=== PATIENT | female | born 1970 | race Caucasian/White ===

== ENCOUNTER 2018-03-29 21:49 | Emergency (ER) | payer OTHER ==
[2018-03-29 21:55] VITALS: BP 134/90; PULSE 150; RESP 20; TEMP 98.2; O2SAT 98
[2018-03-29] MEDS ORDERED: ALPR.5 PO (22:03)
[2018-03-29] MEDS ORDERED: CELE40TA PO (22:03)
--- NOTE | 2018-03-29 22:08 | PD ---
HPI Chief Complaint: Psychiatric Symptoms Time Seen by Provider: 21:51 Travel History International Travel<30 days: No Contact w/Intl Traveler<30days: No Traveled to known affect area: No History of Present Illness HPI 47-year-old female that presents to the ED for evaluation of Ocasio act. Patient was Ocasio acted by police after apparently she made suicidal statements. Apparently she posted on social media that she wanted to kill herself. She is states that she is undergoing a divorce were her apparently has essentially made her homeless. She currently lives with sister. She states that she currently has no pain. She has a history of depression, anxiety, PTSD and takes Xanax and antidepressants. She states that she has been drinking today. She denies any other substance abuse. Denies any chest pain or shortness of breath. No urinary or bowel movement issues. She does smell heavily of alcohol. She appears to answer questions appropriately. She denies any homicidal ideation she does state that she feels suicidal secondary to having hopelessness secondary to the divorce and losing all of her belongings. Symptoms appear to have worsened today but have been ongoing for some time since the divorce started. Nothing seems to make them better. PFSH Past Medical History Anxiety: Yes Depression: Yes Diminished Hearing: No Psychiatric: Yes (PTSD) Tetanus Vaccination: Unknown Influenza Vaccination: No ?: Not Past Surgical History Surgical History: No Previous Surgery Social History Alcohol Use: Yes Tobacco Use: No (1 ppd) Substance Use: No Allergies-Medications (Allergen,Severity, Reaction): Coded Allergies: No Known Allergies (Unverified , 03/29/18) Reported Meds & Prescriptions Reported Meds & Active Scripts Active Reported Xanax (Alprazolam) 0.5 Mg Tab 0.5 Mg PO Q6H PRN Celexa (Citalopram Hydrobromide) 40 Mg Tab 40 Mg PO DAILY Review of Systems ROS Limitations: Intoxication Except as stated in HPI: all other systems reviewed are Neg Physical Exam Exam Limitations: Intoxication Narrative GENERAL: SKIN: Warm and dry. HEAD: Atraumatic. Normocephalic. EYES: Pupils equal and round. No scleral icterus. No injection or drainage. ENT: No nasal bleeding or discharge. Mucous membranes pink and moist. Tongue is midline. No uvula deviation. NECK: Trachea midline. No JVD. CARDIOVASCULAR: Tachycardic rate and rhythm. No murmurs, S3, S4 RESPIRATORY: No accessory muscle use. Clear to auscultation. Breath sounds equal bilaterally. GASTROINTESTINAL: Abdomen soft, non-tender, nondistended. Hepatic and splenic margins not palpable. MUSCULOSKELETAL: Extremities without clubbing, cyanosis, or edema. No obvious deformities. Full range of motion of the upper and lower extremities bilaterally. 2+ pulses bilaterally. NEUROLOGICAL: Awake and alert. No obvious cranial nerve deficits. Motor grossly within normal limits. Five out of 5 muscle strength in the arms and legs. Normal speech. PSYCHIATRIC: Intoxicated mood and affect; insight and judgment normal. Data Data Last Documented VS Vital Signs Date Time Temp Pulse Resp B/P (MAP) Pulse Ox O2 Delivery O2 Flow Rate FiO2 03/29/18 21:55 98.2 150 20 134/90 (105) 98 Orders Orders Complete Blood Count With Diff (03/29/18 21:51) Comprehensive Metabolic Panel (03/29/18 21:51) Thyroid Stimulating Hormone (03/29/18 21:51) Psych Screen (03/29/18 21:51) Drug Screen, Random Urine (03/29/18 21:51) Alcohol (Ethanol) (03/29/18 21:51) Electrocardiogram (03/29/18 ) Sodium Chlor 0.9% 1000 Ml Inj (Ns 1000 M (03/29/18 22:30) Haloperidol Inj (Haldol Inj) (03/29/18 22:30) MDM Medical Decision Making Medical Screen Exam Complete: Yes Emergency Medical Condition: Yes Medical Record Reviewed: Yes Differential Diagnosis Depression versus suicidal ideation versus anxiety versus adjustment disorder versus mood disorder versus bipolar disorder versus schizophrenia versus paranoid disorder versus psychosis versus substance abuse versus alcohol abuse versus alcohol induced psychosis versus homicidality addition versus cutting versus personality disorder versus tachycardia versus anxiety versus atrial fibrillation Narrative Course 47-year-old female that presents to the ED for evaluation of psych. Patient was properly examined and was found to have signs and symptoms consistent with psychiatric illness. Patient was found to be somewhat tachycardic on exam. She denies take any other drugs but does state that she drank alcohol all day today. She smells heavily of alcohol. I suspect that this is alcohol-related but the heart rate still too high. I did order labs and EKG. Patient will be moved to a bed where she can get IV fluids and hydration as well as further eval if heart rate still elevated in the 150s. Case signed out to incoming provider pending disposition and plan. Gustabo Bryan Mar 29, 2018 22:08
[2018-03-29 22:25] LABS: AUTOMATED NEUTROPHIL # 6.1 TH/MM3 (1.8-7.7); BASOPHIL # 0.1 TH/MM3 (0-0.2); BASOPHIL % 1.4 % (0.0-2.0); EOSINOPHIL # 0.1 TH/MM3 (0-0.4); EOSINOPHIL % 1.1 % (0.0-4.0); HEMATOCRIT 42.5 % (35.0-46.0); HEMOGLOBIN 14.5 GM/DL (11.6-15.3); LYMPH % 27.1 % (9.0-44.0); LYMPHOCYTE # 2.6 TH/MM3 (1.0-4.8); MEAN CELL VOLUME 94.5 FL (80.0-100.0); MEAN CORPUSCULAR HEMOGLOBIN 32.2 PG (27.0-34.0); MEAN CORPUSCULAR HGB CONC 34.1 % (32.0-36.0); MEAN PLATELET VOLUME 7.7 FL (7.0-11.0); MONO % 5.3 % (0.0-8.0); MONOCYTE # 0.5 TH/MM3 (0-0.9); NEUT % 65.1 % (16.0-70.0); PLATELET COUNT 347 TH/MM3 (150-450); RED CELL DISTRIBUTION WIDTH 14.4 % (11.6-17.2); WHITE BLOOD COUNT 9.4 TH/MM3 (4.0-11.0)
[2018-03-29] MEDS ORDERED: HALOPERIDOL LACTATE 5 MG/ML AMP IV ONE (22:30)
[2018-03-29] MEDS ORDERED: SODIUM CHLOR 0.9% 1000 ML INJ 1,000 ML IV ONE (22:30)
[2018-03-29 22:41] LABS: ALT (GPT) 26 U/L (10-53)
[2018-03-29 22:50] LABS: ALKALINE PHOSPHATASE 64 U/L (45-117); TOTAL BILIRUBIN ADULT 0.2 MG/DL (0.2-1.0); TOTAL PROTEIN 8.4 GM/DL (6.4-8.2)
[2018-03-29 23:04] LABS: ALBUMIN 3.9 GM/DL (3.4-5.0); AST (GOT) 23 U/L (15-37); BICARBONATE 20.2 MEQ/L (21.0-32.0); BLOOD UREA NITROGEN 5 MG/DL (7-18); CALCIUM 8.5 MG/DL (8.5-10.1); CHLORIDE 102 MEQ/L (98-107); CREATININE 0.72 MG/DL (0.50-1.00); GLOMERULAR FILTRATION RATE 87 ML/MIN (>89); GLUCOSE,RANDOM 93 MG/DL (74-106); SODIUM (NA) 136 MEQ/L (136-145)
--- NOTE | 2018-03-29 23:39 | PD ---
Physical Exam Narrative GENERAL: Smell of alcohol, was very emotional and crying SKIN: Warm and dry. HEAD: Atraumatic. Normocephalic. EYES: Pupils equal and round. No scleral icterus. No injection or drainage. ENT: No nasal bleeding or discharge. Mucous membranes pink and moist. NECK: Trachea midline. No JVD. CARDIOVASCULAR: Regular rhythm. Tachycardic at about 130 RESPIRATORY: No accessory muscle use. Clear to auscultation. Breath sounds equal bilaterally. GASTROINTESTINAL: Abdomen soft, non-tender, nondistended. Hepatic and splenic margins not palpable. MUSCULOSKELETAL: Extremities without clubbing, cyanosis, or edema. No obvious deformities. NEUROLOGICAL: Awake and alert. No obvious cranial nerve deficits. Motor grossly within normal limits. Five out of 5 muscle strength in the arms and legs. Normal speech. PSYCHIATRIC: AGITATED mood and SAD affect Data Data Last Documented VS Vital Signs Date Time Temp Pulse Resp B/P (MAP) Pulse Ox O2 Delivery O2 Flow Rate FiO2 03/30/18 16:18 03/30/18 07:17 98 18 98 Room Air 03/29/18 21:55 98.2 Orders Orders Complete Blood Count With Diff (03/29/18 21:51) Comprehensive Metabolic Panel (03/29/18 21:51) Thyroid Stimulating Hormone (03/29/18 21:51) Psych Screen (03/29/18 21:51) Drug Screen, Random Urine (03/29/18 21:51) Alcohol (Ethanol) (03/29/18 21:51) Electrocardiogram (03/29/18 ) Sodium Chlor 0.9% 1000 Ml Inj (Ns 1000 M (03/29/18 22:30) Haloperidol Inj (Haldol Inj) (03/29/18 22:30) Diet Regular Basic (03/30/18 Breakfast) Diet Regular Basic (03/30/18 Lunch) Ed Discharge Order (03/30/18 15:51) Labs Laboratory Tests Test 03/29/18 22:04 03/29/18 22:51 White Blood Count 9.4 TH/MM3 Red Blood Count 4.50 MIL/MM3 Hemoglobin 14.5 GM/DL Hematocrit 42.5 % Mean Corpuscular Volume 94.5 FL Mean Corpuscular Hemoglobin 32.2 PG Mean Corpuscular Hemoglobin Concent 34.1 % Red Cell Distribution Width 14.4 % Platelet Count 347 TH/MM3 Mean Platelet Volume 7.7 FL Neutrophils (%) (Auto) 65.1 % Lymphocytes (%) (Auto) 27.1 % Monocytes (%) (Auto) 5.3 % Eosinophils (%) (Auto) 1.1 % Basophils (%) (Auto) 1.4 % Neutrophils # (Auto) 6.1 TH/MM3 Lymphocytes # (Auto) 2.6 TH/MM3 Monocytes # (Auto) 0.5 TH/MM3 Eosinophils # (Auto) 0.1 TH/MM3 Basophils # (Auto) 0.1 TH/MM3 CBC Comment DIFF FINAL Differential Comment Blood Urea Nitrogen 5 MG/DL Creatinine 0.72 MG/DL Random Glucose 93 MG/DL Total Protein 8.4 GM/DL Albumin 3.9 GM/DL Calcium Level 8.5 MG/DL Alkaline Phosphatase 64 U/L Aspartate Amino Transf (AST/SGOT) 23 U/L Alanine Aminotransferase (ALT/SGPT) 26 U/L Total Bilirubin 0.2 MG/DL Sodium Level 136 MEQ/L Potassium Level 4.0 MEQ/L Chloride Level 102 MEQ/L Carbon Dioxide Level 20.2 MEQ/L Anion Gap 14 MEQ/L Estimat Glomerular Filtration Rate 87 ML/MIN Thyroid Stimulating Hormone 3rd Gen 1.540 uIU/ML Ethyl Alcohol Level 254 MG/DL Urine Opiates Screen NEG Urine Barbiturates Screen NEG Urine Amphetamines Screen NEG Urine Benzodiazepines Screen NEG Urine Cocaine Screen POS Urine Cannabinoids Screen NEG MDM Medical Record Reviewed: Yes Supervised Visit with DORINDA: Yes Narrative Course CBC shows no leukocytosis, no anemia and normal platelet count, without any left shift. Electrolytes are all within normal limits, with normal kidney liver function as well as TSH screening Alcohol level 254 Diagnosis Primary Impression: MEDICALLY CLEARED Additional Impressions: SANCHEZ ACT ETOH INTOXICATION Lang Nelson MD Mar 29, 2018 23:39
[2018-03-30 07:17] VITALS: BP 155/89; PULSE 98; RESP 18; O2SAT 98
--- NOTE | 2018-03-30 14:34 | EKG ---
Date Performed: 03/29/2018 Time Performed: 22:10:37 PTAGE: 47 years EKG: SINUS TACHYCARDIA, POSSIBLE ATRIAL FLUTTER/ATRIAL TACHYCARDIA ABNORMAL RHYTHM ECG NO PREVIOUS TRACING DOCTOR: Ruy Munson Interpretating Date/Time 03/30/2018 14:34:17
--- NOTE | 2018-03-30 15:40 | PD ---
History of Present Illness Chief Complaint: Psychiatric Symptoms Time Seen by Provider: 15:00 Travel History International Travel<30 Days: No Contact w/Intl Traveler<30days: No Known affected area: No Legal Status Legal Status: Ocasio Act History of Present Illness: History of Present Illness HPI 47-year-old, , female with history of anxiety and depression that presents to the ED under a Ocasio act initiated by law enforcement. Patient was Ocasio acted by police after apparently she made suicidal statements on social media that she wanted to kill herself. Patient admits to having made the statements that she was suicidal while she was under the influence of alcohol as well as cocaine. Her blood alcohol level on arrival was 254 and her toxicology is positive for cocaine. She states" I drank a little too much but I have no plans on hurting myself". Patient was monitor and secure environment until she was clinically sober to complete psychiatric evaluation. EMR is reviewed. No previous contact with [facility] psychiatry Department. Patient is awake, alert, dressed in [facility], and maintaining basic hygiene. She is clinically sober. Gait is steady. Speech is clear and logical , normal rate and tone. There is no indication of any psychosis, no maranda or hypomania. Mood is nearly euthymic. She denies any suicidal ideation, intent or plan and once again reiterates that she had been drinking a little too much on the day that she did posts on social media. She tells me that she is going through a divorce but that she is staying with her sister who is supportive. When asked about suicidality she states" I would never do that I love my family , I have 3 sons that love me." She also tells me that her sister has helped her secure an ip attorney that is helping her with the resolution of the marriage and that she is excited because at least she will be getting 1 of her dogs back. Remainder of psychiatric review of systems is negative. PFSH Past Medical History Anxiety: Yes Depression: Yes Diminished Hearing: No Psychiatric: Yes (PTSD) Tetanus Vaccination: Unknown Influenza Vaccination: No ?: Not Past Surgical History Surgical History: No Previous Surgery Psychiatric History Psychiatric History Hx Psychiatric Treatment: Reports has been taken medication including Celexa and Xanax for approximately 1 year. No previous suicide attempts. No history of self-injurious behavior. History of Inpatient Treatment: No Guns or firearms in home: No Social History Patient is from [facility]. Is now staying with her sister. She has been for 6 years. Has 3 adult children. She has worked for [employer] is including [employer]. She is currently unemployed due to a back injury. Hx Alcohol Use: Yes (Patient denies that she drinks on a daily basis.) Hx Tobacco Use: No (1 ppd) Hx Substance Use: Yes Substance Use Type: Cocaine Hx of Substance Use Treatment: No Family Psychiatric History Negative Allergies-Medications (Allergen,Severity, Reaction): Coded Allergies: No Known Allergies (Unverified , 03/29/18) Reported Meds & Prescriptions Reported Meds & Active Scripts Active Reported Xanax (Alprazolam) 0.5 Mg Tab 0.5 Mg PO Q6H PRN Celexa (Citalopram Hydrobromide) 40 Mg Tab 40 Mg PO DAILY Review of Systems Psychiatric: DENIES: Anxiety, Confusion, Mood changes, Depression, Hallucinations, Agitation, Suicidal Ideation, Homicidal Ideation, Delusions Except as stated in HPI: all other systems reviewed are Neg Mental Status Examination Appearance: Appropriate (In [facility]) Consciousness: Alert Orientation: x4 Motor Activity: Normal gait Speech: Unremarkable Language: Adequate Fund of Knowledge: Adequate Memory: Unremarkable Mood: Appropriate Affect: Appropriate Thought Process & Associations: Intact, Logical, Goal directed Thought Content: Appropriate Hallucination Type: None Delusion Type: None Suicidal Ideation: No Suicidal Plan: No Suicidal Intention: No Homicidal Ideation: No Homicidal Plan: No Homicidal Intention: No Insight: Adequate Judgment: Adequate MDM Medical Decision Making Medical Record Reviewed: Yes Assessment/Plan History of Present Illness HPI 47-year-old female with history of depression and anxiety who in context of acute alcohol intoxication as well as cocaine use posted on social media that she was suicidal. The patient admits to having posted that she was suicidal but she denies that she had posted anything about having a plan. She was monitored in secure environment and presented no suicidality. She was allowed to sober up clinically. Once sober the patient presents no evidence of unstable mental illness has defined under the Ocasio act. She denies any suicidal ideation, intent or plan. She is future oriented and is excited about having 1 of her dogs back with her. She is also excited today because she will be seeing her nieces that are visiting in the area and returning to [place]. She tells me that she has support from her sister. I have advised her regarding continued use of alcohol. The patient contracts for safety and she is cognitively intact. BA is lifted. Psychiatrically clear for discharge from the ED. Orders Orders Complete Blood Count With Diff (03/29/18 21:51) Comprehensive Metabolic Panel (03/29/18 21:51) Thyroid Stimulating Hormone (03/29/18 21:51) Psych Screen (03/29/18 21:51) Drug Screen, Random Urine (03/29/18 21:51) Alcohol (Ethanol) (03/29/18 21:51) Electrocardiogram (03/29/18 ) Sodium Chlor 0.9% 1000 Ml Inj (Ns 1000 M (03/29/18 22:30) Haloperidol Inj (Haldol Inj) (03/29/18 22:30) Diet Regular Basic (03/30/18 Breakfast) Diet Regular Basic (03/30/18 Lunch) Diet Regular Basic (03/30/18 Dinner) Results Vital Signs Date Time Temp Pulse Resp B/P (MAP) Pulse Ox O2 Delivery O2 Flow Rate FiO2 03/30/18 07:17 98 18 155/89 (111) 98 Room Air 03/29/18 21:55 98.2 150 20 134/90 (105) 98 Laboratory Tests Test 03/29/18 22:04 03/29/18 22:51 White Blood Count 9.4 Red Blood Count 4.50 Hemoglobin 14.5 Hematocrit 42.5 Mean Corpuscular Volume 94.5 Mean Corpuscular Hemoglobin 32.2 Mean Corpuscular Hemoglobin Concent 34.1 Red Cell Distribution Width 14.4 Platelet Count 347 Mean Platelet Volume 7.7 Neutrophils (%) (Auto) 65.1 Lymphocytes (%) (Auto) 27.1 Monocytes (%) (Auto) 5.3 Eosinophils (%) (Auto) 1.1 Basophils (%) (Auto) 1.4 Neutrophils # (Auto) 6.1 Lymphocytes # (Auto) 2.6 Monocytes # (Auto) 0.5 Eosinophils # (Auto) 0.1 Basophils # (Auto) 0.1 CBC Comment DIFF FINAL Differential Comment Blood Urea Nitrogen 5 Creatinine 0.72 Random Glucose 93 Total Protein 8.4 Albumin 3.9 Calcium Level 8.5 Alkaline Phosphatase 64 Aspartate Amino Transf (AST/SGOT) 23 Alanine Aminotransferase (ALT/SGPT) 26 Total Bilirubin 0.2 Sodium Level 136 Potassium Level 4.0 Chloride Level 102 Carbon Dioxide Level 20.2 Anion Gap 14 Estimat Glomerular Filtration Rate 87 Thyroid Stimulating Hormone 3rd Gen 1.540 Ethyl Alcohol Level 254 Urine Opiates Screen NEG Urine Barbiturates Screen NEG Urine Amphetamines Screen NEG Urine Benzodiazepines Screen NEG Urine Cocaine Screen POS Urine Cannabinoids Screen NEG Diagnosis Primary Impression: Alcohol-induced mood disorder Additional Impression: Alcohol intoxication Psychiatrically Cleared: Yes Departure Forms: Tests/Procedures Patient Instructions: General Instructions Med/ Other Pt Specific Info: No Change to Meds Disposition: 01 DISCHARGE HOME Condition: Stable Problem Qualifiers Additional Impression: Alcohol intoxication Qualified Codes: F10.920 - Alcohol use, unspecified with intoxication, uncomplicated Maida Rhoades [facility] Mar 30, 2018 15:40
--- NOTE | 2018-03-30 15:51 | PD ---
Physical Exam Date Seen by Provider: Mar 30, 2018 Time Seen by Provider: 15:49 Narrative 47-year-old female previously medically cleared for psychiatric evaluation, has been seen and evaluated by psychiatric staff, and deemed psychiatrically stable for discharge at this time. Patient remains medically stable for discharge at this time. Patient has no known drug allergies. Data Data Last Documented VS Vital Signs Date Time Temp Pulse Resp B/P (MAP) Pulse Ox O2 Delivery O2 Flow Rate FiO2 03/30/18 07:17 98 18 155/89 (111) 98 Room Air 03/29/18 21:55 98.2 Orders Orders Complete Blood Count With Diff (03/29/18 21:51) Comprehensive Metabolic Panel (03/29/18 21:51) Thyroid Stimulating Hormone (03/29/18 21:51) Psych Screen (03/29/18 21:51) Drug Screen, Random Urine (03/29/18 21:51) Alcohol (Ethanol) (03/29/18 21:51) Electrocardiogram (03/29/18 ) Sodium Chlor 0.9% 1000 Ml Inj (Ns 1000 M (03/29/18 22:30) Haloperidol Inj (Haldol Inj) (03/29/18 22:30) Diet Regular Basic (03/30/18 Breakfast) Diet Regular Basic (03/30/18 Lunch) Diet Regular Basic (03/30/18 Dinner) Labs Laboratory Tests Test 03/29/18 22:04 03/29/18 22:51 White Blood Count 9.4 TH/MM3 Red Blood Count 4.50 MIL/MM3 Hemoglobin 14.5 GM/DL Hematocrit 42.5 % Mean Corpuscular Volume 94.5 FL Mean Corpuscular Hemoglobin 32.2 PG Mean Corpuscular Hemoglobin Concent 34.1 % Red Cell Distribution Width 14.4 % Platelet Count 347 TH/MM3 Mean Platelet Volume 7.7 FL Neutrophils (%) (Auto) 65.1 % Lymphocytes (%) (Auto) 27.1 % Monocytes (%) (Auto) 5.3 % Eosinophils (%) (Auto) 1.1 % Basophils (%) (Auto) 1.4 % Neutrophils # (Auto) 6.1 TH/MM3 Lymphocytes # (Auto) 2.6 TH/MM3 Monocytes # (Auto) 0.5 TH/MM3 Eosinophils # (Auto) 0.1 TH/MM3 Basophils # (Auto) 0.1 TH/MM3 CBC Comment DIFF FINAL Differential Comment Blood Urea Nitrogen 5 MG/DL Creatinine 0.72 MG/DL Random Glucose 93 MG/DL Total Protein 8.4 GM/DL Albumin 3.9 GM/DL Calcium Level 8.5 MG/DL Alkaline Phosphatase 64 U/L Aspartate Amino Transf (AST/SGOT) 23 U/L Alanine Aminotransferase (ALT/SGPT) 26 U/L Total Bilirubin 0.2 MG/DL Sodium Level 136 MEQ/L Potassium Level 4.0 MEQ/L Chloride Level 102 MEQ/L Carbon Dioxide Level 20.2 MEQ/L Anion Gap 14 MEQ/L Estimat Glomerular Filtration Rate 87 ML/MIN Thyroid Stimulating Hormone 3rd Gen 1.540 uIU/ML Ethyl Alcohol Level 254 MG/DL Urine Opiates Screen NEG Urine Barbiturates Screen NEG Urine Amphetamines Screen NEG Urine Benzodiazepines Screen NEG Urine Cocaine Screen POS Urine Cannabinoids Screen NEG MDM Medical Record Reviewed: Yes Supervised Visit with DORINDA: Yes Narrative Course 47-year-old female previously medically cleared for psychiatric evaluation, has been seen and evaluated by psychiatric staff, and deemed psychiatrically stable for discharge at this time. Patient remains medically stable for discharge at this time. Patient has no known drug allergies. Diagnosis Primary Impression: Alcohol-induced mood disorder Additional Impressions: SANCHEZ ACT ETOH INTOXICATION MEDICALLY CLEARED Patient Instructions: General Instructions Departure Forms: Tests/Procedures Disposition: 01 DISCHARGE HOME Condition: Stable Fareed Casper Mar 30, 2018 15:51
== END 2018-03-30 16:30 | disposition home or self-care (01) ==
LOC: NEPC 21:49 → NEPJ 03-30 16:30
DX: F10.94 Alcohol use, unspecified with alcohol-induced mood disorder (principal); F32.9 Major depressive disorder, single episode, unspecified; F43.10 Post-traumatic stress disorder, unspecified; Y90.8 Blood alcohol level of 240 mg/100 ml or more; Z79.899 Other long term (current) drug therapy
CPT/HCPCS: 80053; 80307; 84443; 85025; 93005; 96374; 99284; J1630; J7030